=== PATIENT | female | born 1965 | race Caucasian/White ===

== ENCOUNTER 2016-10-26 07:24 | Day surgery (SDC) | payer BC ==
[~2016-10-26 07:24] MED LIST: Lactated Ringers 1,000 ML IV SCH; Lidocaine 2% 5 ML SDV ONE; Propofol 200 MG/20 ML SDV ONE; fentaNYL 100 MCG/2 ML SDV ONE
--- NOTE | 2016-10-26 07:57 | PCM.PREANE ---
Preanesthetic Assessment - Anesthesia/Transfusion/Family Hx Anesthesia History: Prior Anesthesia Without Reaction Family History of Anesthesia Reaction: No Transfusion History: No Prior Transfusion(s) - Review of Systems General: No Symptoms Pulmonary: No Symptoms Cardiovascular: No Symptoms Gastrointestinal: No symptoms Neurological: No Symptoms Other: Reports: None - Physical Assessment NPO Status Date: 10/25/16 NPO Status Time: 22:30 O2 Sat by Pulse Oximetry: 95 Respiratory Rate: 16 Vital Signs: Last Vital Signs Temp 36.4 C 10/26/16 07:42 Pulse 89 10/26/16 07:42 Resp 16 10/26/16 07:42 BP 136/82 10/26/16 07:42 Pulse Ox 95 10/26/16 07:42 Height: 1.65 m Weight: 83.007 kg ASA Class: 2 Mental Status: Alert & Oriented x3 Dentition: Reports: Normal Dentition ROM/Head Extension: Full Lungs: Clear to auscultation, Normal respiratory effort Cardiovascular: Regular Rate, Regular Rhythm - Allergies Allergies/Adverse Reactions: Allergies Allergy/AdvReac Type Severity Reaction Status Date / Time No Known Allergies Allergy Verified 10/23/16 10:04 - Anesthesia Plan Pre-Op Medication Ordered: None - Acknowledgements Anesthesia Type Planned: MAC Pt an Appropriate Candidate for the Planned Anesthesia: Yes Alternatives and Risks of Anesthesia Discussed w Pt/Guardian: Yes Pt/Guardian Understands and Agrees with Anesthesia Plan: Yes PreAnesthesia Questionnaire HEENT History: Reports: Other (see below) Other HEENT History: wears glasses Gastrointestinal History: Reports: GERD, Hiatal hernia Genitourinary History: Reports: Renal calculus 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: Musculoskeletal History: Reports: Arthritis, Fibromyalgia - Past Surgical History Head Surgeries/Procedures: Reports: None HEENT Surgical History: Reports: Tonsillectomy GI Surgical History: Reports: Appendectomy, Cholecystectomy Female Surgical History: Reports: section Musculoskeletal Surgical History: Reports: Arthroscopic knee, Carpal tunnel Other Musculoskeletal Surgeries/Procedures:: cristobal knee surgery, cristobal carpal tunnel release - SUBSTANCE USE Smoking Status *Q: Current Every Day Smoker Tobacco Use Within Last Twelve Months: Cigarettes Recreational Drug Use History: No - HOME MEDS Home Medications: Home Meds Diclofenac Sodium/Misoprostol [Diclofenac-Misoprost 75-0.2 Tb] 1 tab PO BID [History] Meloxicam 15 mg PO DAILY 10/23/16 [History] - CURRENT (IN HOUSE) MEDS Current Meds: Current Medications Lactated Ringer's (Ringers, Lactated) 1,000 mls @ 125 mls/hr IV ASDIRECTED [facility] Last Admin: 10/26/16 07:43 Dose: 125 mls/hr Discontinued Medications Fentanyl (Sublimaze) Confirm Administered Dose 100 mcg .ROUTE .STK-MED ONE Stop: 10/26/16 07:20 Lidocaine (Xylocaine-Mpf 2%) Confirm Administered Dose 5 ml .ROUTE .STK-MED ONE Stop: 10/26/16 07:19 Propofol (Diprivan 20 Ml) Confirm Administered Dose 400 mg .ROUTE .STK-MED ONE Stop: 10/26/16 07:19 Preanesthetic Assessment - ANESTHESIA/TRANSFUSION/FAMILY HX Family History of Anesthesia Reaction: No - PHYSICAL ASSESSMENT O2 Sat by Pulse Oximetry: 95 RR: 16 Vital Signs: Last Vital Signs Temp 36.4 C 10/26/16 07:42 Pulse 89 10/26/16 07:42 Resp 16 10/26/16 07:42 BP 136/82 10/26/16 07:42 Pulse Ox 95 10/26/16 07:42 Height: 1.65 m Weight: 83.007 kg NPO Status Date: 10/25/16 NPO Status Time: 22:30 - ALLERGIES Allergies/Adverse Reactions: Allergies Allergy/AdvReac Type Severity Reaction Status Date / Time No Known Allergies Allergy Verified 10/23/16 10:04
[2016-10-26] MEDS ORDERED: Propofol 200 MG/20 ML SDV ONE (08:12)
[2016-10-26] MEDS ORDERED: Glycopyrrolate 0.2 MG/ML SDV ONE (08:17)
--- NOTE | 2016-10-26 08:52 | PCM.OPNOTE ---
- General Post-Op/Procedure Note Date of Surgery/Procedure: 10/26/16 Operative Procedure(s): EGD w/ biopsy. Colonoscopy w/ cold rectal polypectomy Pre Op Diagnosis: GERD w/ heartburn. Colorrectal cancer screening Post-Op Diagnosis: Moderate gastritis w/ ulcers. Rectal polyp. Sigmoid diverticulosis Anesthesia Technique: MAC (ASA II) Primary Surgeon: Ajit Conteh Condition: Good Free Text/Narrative:: Dictation [id number]
[2016-10-26] MEDS ORDERED: Lactated Ringers 1,000 ML IV SCH (09:00)
[2016-10-26 09:07] VITALS: BP 121/60
--- NOTE | 2016-10-26 09:14 | PCM.POSTAN ---
POST ANESTHESIA ASSESSMENT - MENTAL STATUS Mental Status: alert, oriented - RESPIRATORY Respiratory Status: respiratory rate WNL, airway patent - CARDIOVASCULAR CV Status: pulse rate WNL, blood pressure stable - GASTROINTESTINAL GI Status: no symptoms - POST OP HYDRATION Hydration Status: adequate & stable
--- NOTE | 2016-10-26 09:14 | PCM48HPAN ---
Post Anesthesia Note - EVALUATION WITHIN 48HRS OF ANESTHETIC Vital Signs in Normal Range: Yes Patient Participated in Evaluation: Yes Respiratory Function Stable: Yes Airway Patent: Yes Cardiovascular Function Stable: Yes Hydration Status Stable: Yes Pain Control Satisfactory: Yes Nausea and Vomiting Control Satisfactory: Yes Mental Status Recovered: Yes
--- NOTE | 2016-10-26 11:01 | OR ---
SURGEON: Ajit Conteh M.D. DATE OF PROCEDURE: 10/26/2016 OPERATION PERFORMED: Esophagogastroduodenoscopy with biopsy. ANESTHESIA: MAC. ASA CLASSIFICATION: II. PREOPERATIVE DIAGNOSIS: Gastroesophageal reflux with heartburn. POSTOPERATIVE DIAGNOSES: 1. [id number] gastritis. 2. Multiple superficial gastric ulcers. DESCRIPTION OF PROCEDURE: The patient was taken to the endoscopy room, positioned on the endoscopy table in the supine position. Time-out was called for appropriate identification of the patient and procedure. The bite-block was placed between the patient's teeth. Monitored anesthesia care was provided. The gastroscope was inserted into the mouth and advanced without difficulty through the esophagus and stomach into the duodenum, where examination was carried out in a retrograde fashion. Duodenum shows no acute inflammatory changes or ulcerations. The scope was withdrawn into the stomach, which shows a [id number] gastritis. Antral biopsies were obtained to look for the presence of Helicobacter pylori. The gastroscope was retroflexed to visualize the proximal stomach, where multiple superficial gastric ulcers were noted, especially along the greater curvature. Separate biopsies of two of these ulcers were obtained. I did not see any significant hiatal hernia in a retroflexed position nor as the scope was being withdrawn through the GE junction. There were also no acute inflammatory changes in the distal esophagus. The esophagus itself demonstrates good contractility. No esophageal lesions were identified. No stricture was noted. The vocal cords were visualized as the scope was withdrawn and noted to move symmetrically. The patient tolerated this portion of the procedure well. Following colonoscopy, she was taken to recovery room in stable condition. We will start her on Nexium and Carafate today given her gastric ulcers and see her back in the office in 10 days. ISRAEL / HANS /[id number]
--- NOTE | 2016-10-26 11:07 | OR ---
SURGEON: Ajit Conteh M.D. DATE OF PROCEDURE: 10/26/2016 OPERATION PERFORMED: Colonoscopy with cold rectal polypectomy. ANESTHESIA: MAC. ASA CLASSIFICATION: II. PREOPERATIVE DIAGNOSIS: Desire for colorectal cancer screening. POSTOPERATIVE DIAGNOSES: 1. Rectal polyp. 2. Sigmoid diverticulosis. DESCRIPTION OF PROCEDURE: With the patient having completed esophagogastroduodenoscopy with biopsy, she was now positioned in the left lateral decubitus position. The colonoscope was inserted into the rectum and advanced without difficulty to the cecum. The cecum was identified by internal landmarks and external pressure. The colonoscope was retroflexed in the cecum to visualize the ascending colon from below. The colonoscope was then straightened and slowly withdrawn. The cecum, ascending colon, hepatic flexure, transverse colon, splenic flexure, and descending colon showed no tumors, polyps, diverticula, or angiodysplastic changes. Multiple small scattered diverticula were noted throughout the sigmoid colon. Once the colonoscope was withdrawn to the rectum, a large polyp was identified. This was able to be removed with the cold biopsy forceps. No significant bleeding was noted. There was some minor oozing. The colonoscope was retroflexed in the rectum to visualize the anal orifice from above. No other tumors were identified. No other polyps were seen and there were no acute hemorrhoidal changes. The colonoscope was then straightened, the rectum aspirated, and the colonoscope was removed. The patient tolerated the procedure well and was taken to recovery room in stable condition. ISRAEL MAXWELL /[id number]
== END 2016-10-26 09:25 | disposition home or self-care (01) ==
LOC: MW.SDS 07:24
PROVIDERS: ATTEND Surgery
PROC: 0DB68ZX Excision of Stomach, Via Natural or Artificial Opening Endoscopic, Diagnostic (ICD-10-PCS; principal; 2016-10-26)
PROC: 0DBP8ZZ Excision of Rectum, Via Natural or Artificial Opening Endoscopic (ICD-10-PCS; 2016-10-26)
DX: Z12.11 Encounter for screening for malignant neoplasm of colon (principal); D12.8 Benign neoplasm of rectum; K57.30 Diverticulosis of large intestine without perforation or abscess without bleeding; K29.50 Unspecified chronic gastritis without bleeding; K25.9 Gastric ulcer, unspecified as acute or chronic, without hemorrhage or perforation; K21.9 Gastro-esophageal reflux disease without esophagitis; F17.210 Nicotine dependence, cigarettes, uncomplicated; M19.90 Unspecified osteoarthritis, unspecified site; M79.7 Fibromyalgia; Z79.899 Other long term (current) drug therapy; Z90.49 Acquired absence of other specified parts of digestive tract; Z90.89 Acquired absence of other organs; Z98.890 Other specified postprocedural states; Z87.442 Personal history of urinary calculi
CPT/HCPCS: 43239; 45380; 88305; 88312; J3010; J7120; 00740; J2704

== ENCOUNTER 2018-10-07 07:51 | Day surgery (SDC) | payer BC ==
[~2018-10-07 07:51] MED LIST changes: -Lidocaine 2% 5 ML SDV ONE; -Propofol 200 MG/20 ML SDV ONE; -fentaNYL 100 MCG/2 ML SDV ONE
[2018-10-07] MEDS ORDERED: Propofol 200 MG/20 ML SDV ONE ×3 (08:22→09:48)
[2018-10-07] MEDS ORDERED: Lidocaine 2% 5 ML SDV ONE (08:22)
[2018-10-07] MEDS ORDERED: Midazolam 1 MG/ML 2 ML SDV ONE (08:22)
[2018-10-07] MEDS ORDERED: fentaNYL 100 MCG/2 ML SDV ONE (08:23)
--- NOTE | 2018-10-07 09:08 | PCM.PREANE ---
Preanesthetic Assessment - Anesthesia/Transfusion/Family Hx Anesthesia History: Prior Anesthesia Reaction Other Type of Anesthesia Reaction Comment: quit breathing with previous foot surgery? MAC anesthesia done at [facility] Family History of Anesthesia Reaction: No Transfusion History: No Prior Transfusion(s) Intubation History: Unknown - Review of Systems General: No Symptoms Pulmonary: No Symptoms Cardiovascular: No Symptoms Gastrointestinal: No Symptoms Neurological: No Symptoms Other: Reports: None - Physical Assessment NPO Status Date: 10/06/18 O2 Sat by Pulse Oximetry: 97 Respiratory Rate: 16 Vital Signs: Last Vital Signs Temp 97.0 F 10/07/18 08:25 Pulse 89 10/07/18 08:25 Resp 16 10/07/18 08:25 BP 131/81 10/07/18 08:25 Pulse Ox 97 10/07/18 08:25 Height: 5 ft 5 in Weight: 85.275 kg ASA Class: 2 Mental Status: Alert & Oriented x3 Airway Class: Mallampati = 2 Dentition: Reports: Normal Dentition ROM/Head Extension: Full Lungs: Clear to Auscultation, Normal Respiratory Effort Cardiovascular: Regular Rate, Regular Rhythm - Allergies Allergies/Adverse Reactions: Allergies Allergy/AdvReac Type Severity Reaction Status Date / Time No Known Allergies Allergy Verified 10/03/18 15:24 - Blood Blood Available: No - Anesthesia Plan Pre-Op Medication Ordered: None - Acknowledgements Anesthesia Type Planned: General Anesthesia, MAC Pt an Appropriate Candidate for the Planned Anesthesia: Yes Alternatives and Risks of Anesthesia Discussed w Pt/Guardian: Yes Pt/Guardian Understands and Agrees with Anesthesia Plan: Yes Additional Comments: PMH: gastritis and pud, hx polyps, smoker, (? 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: Musculoskeletal History: Reports: Arthritis, Fibromyalgia Other Musculoskeletal History: joint pain Neurological History: Reports: None Psychiatric History: Reports: None Endocrine/Metabolic History: Reports: None Hematologic History: Reports: None, B12 Deficiency Immunologic History: Reports: None Oncologic (Cancer) History: Reports: None Dermatologic History: Reports: None - Past Surgical History Head Surgeries/Procedures: Reports: None HEENT Surgical History: Reports: Tonsillectomy Cardiovascular Surgical History: Reports: None Respiratory Surgical History: Reports: None GI Surgical History: Reports: Appendectomy, Cholecystectomy, Colonoscopy, EGD Female Surgical History: Reports: Section Male Surgical History: Reports: None Endocrine Surgical History: Reports: None Neurological Surgical History: Reports: None Musculoskeletal Surgical History: Reports: Arthroscopic Knee, Carpal Tunnel Other Musculoskeletal Surgeries/Procedures:: bilateral knee surgery, bilateral carpal tunnel release, cristobal foot bunionectomy, Oncologic Surgical History: Reports: None Dermatological Surgical History: Reports: None - SUBSTANCE USE Smoking Status *Q: Current Every Day Smoker Tobacco Use Within Last Twelve Months: Cigarettes Recreational Drug Use History: No - HOME MEDS Home Medications: Home Meds Ranitidine HCl [Zantac] 150 mg PO DAILY 04/11/18 [History] - CURRENT (IN HOUSE) MEDS Current Meds: Current Medications Lactated Ringer's (Ringers, Lactated) 1,000 mls @ 125 mls/hr IV ASDIRECTED [facility] Last Admin: 10/07/18 08:33 Dose: 125 mls/hr Discontinued Medications Fentanyl (Sublimaze) Confirm Administered Dose 100 mcg .ROUTE .STK-MED ONE Stop: 10/07/18 08:24 Lactated Ringer's (Ringers, Lactated) 1,000 mls @ 125 mls/hr IV [facility]IRECTED [facility] Lidocaine (Xylocaine-Mpf 2%) Confirm Administered Dose 5 ml .ROUTE .STK-MED ONE Stop: 10/07/18 08:23 Midazolam HCl (Versed 1 Mg/Ml) Confirm Administered Dose 2 mg .ROUTE .STK-MED ONE Stop: 10/07/18 08:23 Propofol (Diprivan 20 Ml) Confirm Administered Dose 400 mg .ROUTE .STK-MED ONE Stop: 10/07/18 08:23 Propofol (Diprivan 20 Ml) Confirm Administered Dose 200 mg .ROUTE .STK-MED ONE Stop: 10/07/18 08:25
[2018-10-07] MEDS ORDERED: Glycopyrrolate 0.2 MG/ML SDV ONE (09:46)
--- NOTE | 2018-10-07 10:29 | PCM.OPNOTE ---
- General Post-Op/Procedure Note Date of Surgery/Procedure: 10/07/18 Operative Procedure(s): Esophagogastroduodenoscopy with gastric and esophageal biopsies. Colonoscopy with cold transverse colon polypectomy. Pre Op Diagnosis: Dysphagia with hoarseness. Change in bowel habits with rectal bleeding and history of colon polyps. Post-Op Diagnosis: Gastritis. Esophagitis. Transverse colon polyp. Mild sigmoid diverticulosis. Internal hemorrhoids. 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
[2018-10-07] MEDS ORDERED: Lactated Ringers 1,000 ML IV SCH (10:30)
[2018-10-07 10:52] VITALS: BP 100/65
--- NOTE | 2018-10-07 10:57 | PCM.POSTAN ---
POST ANESTHESIA ASSESSMENT - MENTAL STATUS Mental Status: Alert, Oriented - RESPIRATORY Respiratory Status: Respiratory Rate WNL, Airway Patent, O2 Saturation Stable - CARDIOVASCULAR CV Status: Pulse Rate WNL, Blood Pressure Stable - GASTROINTESTINAL GI Status: No Symptoms - POST OP HYDRATION Hydration Status: Adequate & Stable
--- NOTE | 2018-10-07 10:57 | PCM48HPAN ---
Post Anesthesia Note - EVALUATION WITHIN 48HRS OF ANESTHETIC Vital Signs in Normal Range: Yes Patient Participated in Evaluation: Yes Respiratory Function Stable: Yes Airway Patent: Yes Cardiovascular Function Stable: Yes Hydration Status Stable: Yes Pain Control Satisfactory: Yes Nausea and Vomiting Control Satisfactory: Yes Mental Status Recovered: Yes Resp Rate: 14
--- NOTE | 2018-10-08 09:15 | OR ---
SURGEON: Ajit Conteh M.D. DATE OF PROCEDURE: 10/07/2018 OPERATION PERFORMED: Esophagogastroduodenoscopy with biopsies of the distal stomach and esophagus. ANESTHESIA: MAC. ASA CLASSIFICATION: 2. PREOPERATIVE DIAGNOSES: 1. Dysphagia. 2. Hoarseness. POSTOPERATIVE DIAGNOSES: 1. Mild gastritis. 2. Distal esophagitis. DESCRIPTION OF PROCEDURE: The patient was taken to the endoscopy room and positioned on the endoscopy table in the left lateral decubitus position. Time-out was called for appropriate identification of the patient and the procedure. Monitored anesthesia care was provided. The bite block was placed between the patient's teeth. The gastroscope was then inserted through the bite block and advanced into the esophagus and subsequently through the stomach into the duodenum. Examination was carried out in a retrograde fashion. The duodenum shows no acute inflammatory changes or ulceration. Stomach does show mild gastritis. Antral biopsies were obtained to look for the presence of Helicobacter pylori. The gastroscope was retroflexed to visualize the proximal stomach. No acute ulcerations were noted. No tumors were seen. No polyps were encountered. The gastroscope was then straightened and slowly withdrawn. The GE junction does show some mild esophagitis and biopsies of this area were obtained. The patient also demonstrated some mild linear esophagitis and separate biopsies of this area were obtained. The mid and proximal esophagus showed no acute lesions. The vocal cords were briefly visualized as the scope was withdrawn and noted to move symmetrically. The gastroscope was then removed with the patient having tolerated this portion of the procedure well. Following colonoscopy, she was taken to recovery room in stable condition. ISRAEL / HANS /[id number]
--- NOTE | 2018-10-08 09:21 | OR ---
SURGEON: Ajit Conteh M.D. DATE OF PROCEDURE: 10/07/2018 OPERATION PERFORMED: Colonoscopy with cold transverse colon polypectomy. ANESTHESIA: MAC. ASA CLASSIFICATION: 2. PREOPERATIVE DIAGNOSES: 1. Change in bowel habits. 2. Rectal bleeding. 3. History of colon polyps. POSTOPERATIVE DIAGNOSES: 1. Transverse colon polyp. 2. Internal hemorrhoids. 3. Sigmoid diverticulosis. DESCRIPTION OF PROCEDURE: With the patient having completed esophagogastroduodenoscopy, colonoscopy was now performed. The patient was maintained in the left lateral decubitus position. The colonoscope was inserted into the rectum and advanced with minimal difficulty to the cecum. The cecum was identified by internal landmarks and external pressure. The colonoscope was retroflexed in the cecum to visualize the ascending colon from below, then straightened and slowly withdrawn. The cecum and ascending colon showed no tumors or polyps. No diverticular changes were noted. One small polyp was encountered in the transverse colon and removed with the cold biopsy forceps. The remainder of the transverse colon, splenic flexure, and descending colon showed no tumors, polyps, diverticula, or angiodysplastic changes. No polyps were encountered in the sigmoid colon. She does have a few scattered diverticula. The colonoscope was then withdrawn to the rectum and retroflexed to visualize the anal orifice from above. No tumors or polyps were seen. The patient does have internal hemorrhoids that are not actively bleeding. The colonoscope was then straightened, the rectum aspirated, and the colonoscope removed. The patient tolerated the procedure well and was taken to recovery room in stable condition. [place]RA[place] / HANS /[id number]
== END 2018-10-07 10:53 | disposition home or self-care (01) ==
LOC: MW.SDS 07:51
PROVIDERS: ATTEND Surgery
DX: D12.3 Benign neoplasm of transverse colon (principal); K57.30 Diverticulosis of large intestine without perforation or abscess without bleeding; K64.8 Other hemorrhoids; K29.50 Unspecified chronic gastritis without bleeding; K20.9 Esophagitis, unspecified; K21.9 Gastro-esophageal reflux disease without esophagitis; F17.210 Nicotine dependence, cigarettes, uncomplicated; M19.90 Unspecified osteoarthritis, unspecified site; M81.0 Age-related osteoporosis without current pathological fracture; M06.9 Rheumatoid arthritis, unspecified; Z86.010 Personal history of colon polyps; Z79.899 Other long term (current) drug therapy
CPT/HCPCS: 43239; 45380; J2001; J2250; J2704; J3010; J3490; J7120; 88305; 88312